=== PATIENT | female | born 1990 | race Caucasian/White ===

== ENCOUNTER 2023-11-12 09:11 | Outpatient (CLI) | payer OTHER, SELFPAY ==
--- NOTE | 2023-11-12 09:15 | US_ITS ---
Patient: ARON GAMEZ Facility:?[facility] Patient ID:?[id number] Site Patient ID:?[id number]. Site :?[id number] Study:?US-OB Pelvis OB <14 WEEKS TA-11/12/2023 9:44:11 AM Ordering Physician:Katheryn Alberto Final Report: INDICATION: First trimester scan, establish dates. COMPARISON: None. TECHNIQUE: Real-time dhaliwal-scale imaging of the pelvis was performed. FINDINGS: Sonographic imaging demonstrates a single living intrauterine gestation. The embryo demonstrates a regular cardiac rate measuring 180 beats per minute. The embryo`s crown-rump length measurement of 3.2 cm corresponds to a gestational age of 10 weeks 1 day with a sonographic due date of 06/08/2024. There is a normal-appearing yolk sac. There are no gross abnormalities noted within the embryo at this early state of development. The gestational sac has a normal appearance. There is a 1.4 x 1.1 x 1.5 cm left-sided perigestational hemorrhage. The amount of fluid within the sac appears appropriate for gestational age. The cervix is closed. The myometrium appears normal. The ovaries are of normal size. Corpus luteal cyst left ovary. There are no suspicious fluid collections noted in the cul-de-sac. IMPRESSION: Single living intrauterine with sonographic gestational age 10 weeks 1 day and sonographic due date of 06/08/2024. Small left-sided subchorionic hemorrhage measuring 14 x 11 x 15 millimeters. Dictated by Fernando Cadet MD @ 11/12/2023 11:52:51 AM Signed by:?Fernando Cadet MD @11/12/2023 11:52:51 AM (Electronic Signature)
== END 2023-11-12 09:12 | disposition home or self-care (01) ==
PROVIDERS: Visit Provider Advanced Practice Midwife
DX: Z34.91 Encounter for supervision of normal pregnancy, unspecified, first trimester (principal); O20.9 Hemorrhage in early pregnancy, unspecified; Z3A.10 10 weeks gestation of pregnancy
CPT/HCPCS: 76801; 82565; 82570; 84156; 84450; 84460; 84520; 86592; 86703; 86704; 86706; 86762; 86787; 86803; 86850; 86900; 86901; 87086; 87186; 87340

== ENCOUNTER 2024-01-28 08:07 | Outpatient (CLI) | payer OTHER, SELFPAY ==
--- NOTE | 2024-01-28 08:15 | CRLHL7_ITS ---
For Patients: As a result of the Century Cures Act, medical imaging exams and procedure reports are released immediately into your electronic medical record. You may view this report before your referring provider. If you have questions, please contact your health care provider. INDICATION: Evaluate anatomy. COMPARISON: 11/12/2023 TECHNIQUE: Real time dhaliwal scale imaging of the fetus was performed as well as color Doppler analysis of the umbilical vessels. FINDINGS: Sonographic imaging demonstrates a single living intrauterine gestation. Fetus demonstrates a regular cardiac rate of 138 beats per minute. Fetus has a breech position. The placenta lies anteriorly without evidence of placenta previa. Edge of the placenta located 6.0 cm from the internal cervical os. Amniotic fluid volume appears normal. Single deepest vertical pocket: 4.9 cm. The cervix is closed and measures 4.1 cm in length. The composite ultrasound gestational age is calculated at 21 weeks 2 days with an estimated sonographic due date of 06/07/2024. The estimated weight is 409 grams which lies at the 50th %. The following biometric measurements were obtained: Biparietal diameter: 4.8 cm/20 weeks 4 day 28th% Head circumference: 18.6 cm/21 weeks 0 days 32nd% Abdominal circumference: 16.6 cm/21 weeks 5 days 60th% Femur length: 3.5 cm/20 weeks 6 days 31st% The HC/AC ratio measures: 1.12 range (1.06-1.24) On anatomic survey, there is a normal appearance of the cerebral ventricles, cavum septi pellucidi, cisterna magna and cerebellum. The nose, lips, and facial profile appear normal. The cervical, thoracic and lumbar spine are well visualized and appear normal. There is a normal four-chamber heart view and the left and right ventricular outflow tracts appear normal. The diaphragm and stomach appear normal. The kidneys and bladder also appear normal. There is a normal three-vessel cord and cord insertion site. The four extremities appear normal. IMPRESSION: Normal OB ultrasound exam with concordance of clinical and sonographic dating. No intrinsic abnormalities noted on anatomic survey. Dictated by Fernando Cadet MD @ 01/29/2024 5:19:00 AM (Electronically Signed)
== END 2024-01-28 08:08 | disposition home or self-care (01) ==
LOC: US 08:08
PROVIDERS: Visit Provider Advanced Practice Midwife
DX: Z34.92 Encounter for supervision of normal pregnancy, unspecified, second trimester (principal); Z3A.21 21 weeks gestation of pregnancy
CPT/HCPCS: 76805

== ENCOUNTER 2024-03-18 09:35 | Outpatient (CLI) | payer MEDICAID, SELFPAY | END 2024-03-18 09:36 | disposition home or self-care (01) | LOC: NFLDREF 03-22 22:07 | PROVIDERS: Visit Provider Midwife | DX: O10.912 Unspecified pre-existing hypertension complicating pregnancy, second trimester (principal); Z3A.21 21 weeks gestation of pregnancy; Z86.19 Personal history of other infectious and parasitic diseases; Z36.89 Encounter for other specified antenatal screening | CPT/HCPCS: 86592 ==

== ENCOUNTER 2024-04-11 10:37 | Outpatient (CLI) | payer MEDICAID, SELFPAY ==
--- NOTE | 2024-04-11 10:45 | CRLHL7_ITS ---
For Patients: As a result of the Century Cures Act, medical imaging exams and procedure reports are released immediately into your electronic medical record. You may view this report before your referring provider. If you have questions, please contact your health care provider. INDICATION: CHTN TECHNIQUE: Real time dhaliwal scale imaging of the fetus was performed. COMPARISON: 01/28/2024 FINDINGS: Sonographic imaging demonstrates a single living intrauterine gestation. Fetus demonstrates a regular cardiac rate of 137 beats per minute. Fetus has a vertex position. The placenta lies anteriorly. Amniotic fluid volume appears normal and there is a single deepest pocket of 3.2 cm. The estimated weight is 1968gm which lies at the 62nd %. On the prior OB ultrasound dated 01/28/2024 the estimated weight was at the 50th percentile. BPD 28th percentile. HC is 68th percentile. AC is 63rd percentile. FL is 63rd percentile. The fetus was active and demonstrated normal breathing movements. There was normal flexion and extension of the trunk and extremities. IMPRESSION: Normal biophysical profile score 8/8. Sonographic gestational age 32 weeks 3 days and sonographic due date of 06/03/2024. Sonographic age is 5 days ahead of the clinical age. Estimated weight 62nd percentile. Abdominal circumference 63rd percentile. Dictated by Fernando Cadet MD @ 04/11/2024 4:52:14 PM (Electronically Signed)
== END 2024-04-11 10:38 | disposition home or self-care (01) ==
LOC: US 10:38
PROVIDERS: Visit Provider Midwife
DX: O10.913 Unspecified pre-existing hypertension complicating pregnancy, third trimester (principal); Z3A.32 32 weeks gestation of pregnancy
CPT/HCPCS: 76816; 76819

== ENCOUNTER 2024-05-09 09:11 | Outpatient (CLI) | payer MEDICAID, SELFPAY ==
--- NOTE | 2024-05-09 09:15 | CRLHL7_ITS ---
For Patients: As a result of the Century Cures Act, medical imaging exams and procedure reports are released immediately into your electronic medical record. You may view this report before your referring provider. If you have questions, please contact your health care provider. INDICATION: CHTN TECHNIQUE: Real time dhaliwal scale imaging of the fetus was performed. COMPARISON: 04/11/2024 FINDINGS: Sonographic imaging demonstrates a single living intrauterine gestation. Fetus demonstrates a regular cardiac rate of 163 beats per minute. Fetus has a vertex position. The placenta lies anteriorly. Amniotic fluid volume appears normal and there is a single deepest pocket of 3.9 cm. The estimated weight is 3108gm which lies at the 85th %. On the prior OB ultrasound dated 04/11/2024 the estimated weight was at the 62nd percentile. BPD 61st percentile. HC 60th percentile. AC 96th percentile. FL 56th percentile. The fetus was active and demonstrated normal breathing movements. There was normal flexion and extension of the trunk and extremities. IMPRESSION: Normal biophysical profile score 8/8. Sonographic gestational age 36 weeks 6 days and sonographic due date 05/31/2024. Sonographic age 8 days ahead of the clinical age. Estimated weight 85th percentile. Abdominal circumference 96th percentile. Dictated by Fernando Cadet MD @ 05/09/2024 10:58:29 AM (Electronically Signed)
== END 2024-05-09 09:12 | disposition home or self-care (01) ==
LOC: US 09:11
PROVIDERS: Visit Provider Midwife
DX: O10.913 Unspecified pre-existing hypertension complicating pregnancy, third trimester (principal); Z3A.36 36 weeks gestation of pregnancy
CPT/HCPCS: 76816; 76819

== ENCOUNTER 2024-05-09 10:49 | Outpatient (CLI) | payer MEDICAID, SELFPAY | END 2024-05-09 10:50 | disposition home or self-care (01) | LOC: NFLDREF 05-13 04:50 | PROVIDERS: PCP Advanced Practice Midwife; Visit Provider Advanced Practice Midwife | DX: O10.913 Unspecified pre-existing hypertension complicating pregnancy, third trimester (principal); Z86.19 Personal history of other infectious and parasitic diseases; Z3A.35 35 weeks gestation of pregnancy | CPT/HCPCS: 76816; 76819; 87081; 87653 ==

== ENCOUNTER 2024-05-20 10:01 | Outpatient (CLI) | payer MEDICAID, SELFPAY | END 2024-05-20 10:02 | disposition home or self-care (01) | PROVIDERS: PCP Midwife; Visit Provider Midwife | DX: O10.913 Unspecified pre-existing hypertension complicating pregnancy, third trimester (principal); Z3A.37 37 weeks gestation of pregnancy | CPT/HCPCS: 82565; 82570; 84156; 84450; 84460; 84520 ==

== ENCOUNTER 2024-05-26 10:11 | Outpatient (CLI) | payer MEDICAID, SELFPAY | END 2024-05-26 10:12 | disposition home or self-care (01) | PROVIDERS: Visit Provider Midwife | DX: Z34.93 Encounter for supervision of normal pregnancy, unspecified, third trimester (principal); Z3A.38 38 weeks gestation of pregnancy | CPT/HCPCS: 82565; 82570; 84156; 84450; 84460; 84520 ==

== ENCOUNTER 2024-06-01 12:56 | Outpatient (CLI) | payer MEDICAID, SELFPAY ==
--- NOTE | 2024-06-01 13:00 | CRLHL7_ITS ---
For Patients: As a result of the Century Cures Act, medical imaging exams and procedure reports are released immediately into your electronic medical record. You may view this report before your referring provider. If you have questions, please contact your health care provider. INDICATION: Hypertension TECHNIQUE: Limited transabdominal two-dimensional dhaliwal-scale ultrasound examination. COMPARISON: 04/11/2024 FINDINGS: There is a living fetus in cephalic lie with gestational age of 35 weeks 5 days by LMP and 36 weeks 6 days by today`s measurements. EDC based on LMP is 06/08/2024. BPD: 8.9 cm, 35 weeks 6 days Head circumference: 32.9 cm, 37 weeks 3 days Abdominal circumference: 33.8 cm, 37 weeks 5 days Femur length: 7.1 cm, 36 weeks 1 day HC/AC: 0.97 The weight is estimated at 3108 grams, the 85th percentile. The biophysical profile score is 8/8 with component scores of 2 for breathing movements, 2 for gross body movements, 2 for tone and 2 for amniotic fluid/SDP. The heart rate is measured at 163 beats per minute and the rhythm appears regular. The amniotic fluid volume is within normal limits with single deepest pocket of 3.9 cm. The placenta is anterior and superior to the cervical os. There is no evidence of previa. IMPRESSION: 1. Living fetus in cephalic lie with gestational age of 35 weeks 5 days by LMP and 36 weeks 6 days by today`s measurements. EDC based on LMP is 06/08/2024. 2. weight estimated at 3108 grams, the 85th percentile. 3. Biophysical profile score is 8/8. Dictated by Alek Cardozo MD @ 06/02/2024 9:21:51 AM (Electronically Signed)
== END 2024-06-01 12:57 | disposition home or self-care (01) ==
LOC: US 12:58
PROVIDERS: Visit Provider Midwife
DX: O13.3 Gestational [pregnancy-induced] hypertension without significant proteinuria, third trimester (principal); Z3A.35 35 weeks gestation of pregnancy
CPT/HCPCS: 76816; 76819

== ENCOUNTER 2024-06-01 13:34 | Outpatient (CLI) | payer MEDICAID, SELFPAY | END 2024-06-01 13:35 | disposition home or self-care (01) | PROVIDERS: PCP Advanced Practice Midwife; Visit Provider Advanced Practice Midwife | DX: O10.913 Unspecified pre-existing hypertension complicating pregnancy, third trimester (principal); Z3A.39 39 weeks gestation of pregnancy | CPT/HCPCS: 76816; 76819; 82565; 82570; 84156; 84450; 84460; 84520; 84550 ==

== ENCOUNTER 2024-06-08 12:08 | Outpatient (CLI) | payer MEDICAID, SELFPAY | END 2024-06-08 12:09 | disposition home or self-care (01) | LOC: NFLDREF 06-09 05:15 | PROVIDERS: Visit Provider Advanced Practice Midwife | DX: O10.913 Unspecified pre-existing hypertension complicating pregnancy, third trimester (principal); Z3A.40 40 weeks gestation of pregnancy | CPT/HCPCS: 82565; 82570; 84156; 84450; 84460; 84520 ==

== ENCOUNTER 2024-06-08 12:12 | Outpatient (CLI) | payer MEDICAID, SELFPAY ==
--- NOTE | 2024-06-08 12:15 | CRLHL7_ITS ---
For Patients: As a result of the Century Cures Act, medical imaging exams and procedure reports are released immediately into your electronic medical record. You may view this report before your referring provider. If you have questions, please contact your health care provider. INDICATION: CHTN COMPARISON: 05/09/2024 TECHNIQUE: Real time dhaliwal scale imaging of the fetus was performed. Without non-stress testing. FINDINGS: Sonographic imaging demonstrates a single living intrauterine gestation. Fetus demonstrates a regular cardiac rate of 147 beats per minute. Fetus has a vertex position. The amniotic fluid volume appears normal and there is a single deepest pocket measurement of 3.5 cm. The fetus was active and demonstrated normal breathing movements. There was normal flexion and extension of the trunk and extremities. IMPRESSION: Normal biophysical profile score of 8 out of 8. Dictated by Fernando Cadet MD @ 06/08/2024 1:04:33 PM (Electronically Signed)
== END 2024-06-08 12:13 | disposition home or self-care (01) ==
LOC: US 12:12
PROVIDERS: Visit Provider Advanced Practice Midwife
DX: O10.919 Unspecified pre-existing hypertension complicating pregnancy, unspecified trimester (principal)
CPT/HCPCS: 76819; 82565; 82570; 84156; 84450; 84460; 84520

== ENCOUNTER 2024-06-14 10:17 | Outpatient (CLI) | payer MEDICAID, SELFPAY | END 2024-06-14 10:18 | disposition home or self-care (01) | PROVIDERS: Visit Provider Advanced Practice Midwife | DX: Z34.93 Encounter for supervision of normal pregnancy, unspecified, third trimester (principal); Z3A.40 40 weeks gestation of pregnancy | CPT/HCPCS: 82565; 82570; 84156; 84450; 84460; 84520 ==

== ENCOUNTER 2024-06-16 02:02 | Inpatient (IN) | payer MEDICAID, SELFPAY ==
[2024-06-16] VITALS (26 sets, daily range): BP systolic 114–172; BP diastolic 70–93; PULSE 78–115; RESP 14–18; TEMP 36.6–37.1; O2SAT 93–98; BMI 37.3
--- NOTE | 2024-06-16 01:55 | W.PM.LDBA ---
Subjective History of Present Illness Date Seen: 06/16/24 Narrative: Patient is being admitted to Labor and Delivery for active labor. She is a 34 year old at 41w1d gestation. Her full history and physical was dictated by me on 05/20/2024. Please see this for details. She has had good movement, no LOF, and no vaginal bleeding. She has felt icky since night, but did not start nayana until 11pm on . No [place], vision changes, RUQ pain. No elevated BPs at home per . Specific Issues/Plans : EMIR. Son: Natan. Baby: [place]! H&P completed by Nancy 05/20/2024 REPEAT GBS NEXT VISIT-declined # Chronic HTN, not on meds-CNM care ok as of 02/02/2024. OB consult: 03/03 with MD DAVID Was on meds last near the end, aware this would risk her out of CNM care Baseline Pre-e labs: ordered WNL; Weekly pre-e labs were started at 37w, continue weekly Growth US every 4 weeks beginning at 32 weeks Weekly BPP or NST starting at 32 weeks: testing form completed 03/18/2024 Delivery recommended 38 0/7-39 6/7- would like to wait for IOL towards end range: Declines IOL as of 06/01 Started on Labetalol 200mg BID on 05/20/24-declines IOL. Shared OB/CNM care OK'd w/ Yonas if dose adjustments are not needed. Declines post-dates IOL 06/14 # History of genital HSV Recommends suppression starting at 36 weeks Rx sent pt aware to start, confirmed taking 06/01 # Close child spacing, <12 months at NOB # History of PROM >45 hours # Hx of anxiety/depression, stable # Asymptomatic UTI at NOB # Rubella non-immune recommend pp vaccine Ultrasound: 1st trimester: 11/12/23-Single living intrauterine with sonographic gestational age 10 weeks 1 day and sonographic due date of 06/08/2024. Small left-sided subchorionic hemorrhage measuring 14 x 11 x 15 millimeters. Anatomy scan: 01/28/2024-?Normal OB ultrasound exam with concordance of clinical and sonographic dating. No intrinsic abnormalities noted on anatomic survey.? Others: ? 04/11: BPP 8/8, EFW 62%ile, vertex 05/09: BPP 8/8, EFW 84.6%, vertex 06/01: BPP 8/8, EFW 61%ile, vertex COVID: initial series, declined booster Flu: TDAP: Patient declines. OB - Problem Based A/P Additional Plan (1) : Status: Acute (2) Chronic hypertension affecting : Status: Acute (3) History of herpes genitalis: Status: Acute Plan 34 at 41w1d gestation?? complicated by:??chronic HTN on labetalol Labor type: Spontaneous, Active labor?? Category 1 FHR pattern.??? Labor complicated by: Mild BP elevations, chronic HTN, postdates?? GBS Unknown? PLAN:?? 1. Routine intrapartum cares as ordered. Continue with expectant management?? 2. Monitoring per policy, continuous 3. Planning unmedicated . Candidate for analgesia of choice.??? 4. Patient encouraged to reposition and ambulate to promote physiologic labor and .?? 5. GBS prophylaxis not initiated per AAP recommendations.? 6. Anticipate ? OB Result Labs Blood Type: AB (+) positive Rubella: immune RPR/VDLR: nonreactive GBS Status: unknown (, but negative 05/09/24, Pt declined repeat testing in clinic) HBsAG: negative OB Exam Physical Exam Vital signs: Pulse BP 97 139/93 H 06/16/24 01:42 06/16/24 01:42 Narrative: Vitals Reviewed Constitutional:? Alert and oriented x3 HEENT:? Normocephalic, atraumatic Neck:? Supple Lungs:? Clear to auscultation bilaterally Heart:? Regular rate and rhythm, no murmur, rub or gallop Abdomen:? Soft, nontender, and gravid. Vertex by Kelton's, confirmed with recent BPP. Extremities:? No edema or erythema Cervix:deferred per patient request. NST: 145 bpm/moderate variability/accelerations absent/no confirmed decelerations/q 3 min contractions palpating strong. Difficulty tracing due to maternal positions and habitus, repositioning
[2024-06-16 02:51] LABS: Aspartate Amino Transferase* 21 U/L (12-35); Creatinine* 0.5 mg/dL (0.5-1.5); Estimated Glomerular Filt Rate 128 ml/min
[2024-06-16 02:52] LABS: Alanine Aminotransferase* 17 U/L (4-35); Blood Urea Nitrogen* 8 mg/dL (5-24)
[2024-06-16 02:55] LABS: Hematocrit 37.5 % (33.0-51.0); Hemoglobin* 12.8 gm/dL (12.0-16.0); Mean Corpuscular HGB Conc 34 gm/dL (32-36); Mean Corpuscular Hemoglobin 30 pg (26-34); Mean Corpuscular Volume 87 fL (80-100); Platelet Count* 262 K/uL (140-440); Red Blood Count 4.29 m/uL (4.00-5.20); White Blood Count* 12.86 K/uL (4.50-11.00)
[2024-06-16 02:56] LABS: Slide Review Reflex No
[2024-06-16] MEDS: OXYTOCIN 10 UNIT/ML INJ IM (03:00)
[2024-06-16] MEDS: miSOPROStoL 800 MCG/4 TABLET PR (03:06)
[2024-06-16] MEDS: CARBOPROST TROMETHAMINE 250 MCG/ML INJ IM (03:30)
[2024-06-16] MEDS: OXYTOCIN 30 unit/500 ML in NS 30 UNIT/500 ML BAG 500 UNIT IVPB (03:35)
[2024-06-16] MEDS: LACTATED RINGERS 1000 ML 1,000 ML 300 ML IV (03:39)
[2024-06-16] MEDS: LOPERAMIDE HCL 2 MG CAPSULE 4 MG PO (03:40)
[2024-06-16] MEDS: IBUPROFEN 600 MG TABLET PO ×3 (04:00→22:56)
--- NOTE | 2024-06-16 04:09 | W.PM.OBVAGDE ---
OB Procedure Vag Delivery Mother Details Mother Details: The patient is a 34 year-old, 2, Para 2, admitted on 06/16/24 at 41 1/7 Days gestation. Admission Date: 06/16/24 Additional Details Amniotic Membrane Status: SROM Amniotic Membrane Rupture Date: 06/16/24 Amniotic Membrane Rupture Time: 02:41 Amniotic Membrane Fluid Description: Clear Analgesia/Anesthesia Type: None Waterbirth: No Pitcoin: No Intrapartal Events: None Labor Onset: 23:00 Complete: 02:30 (Assumed with spontaneous intermittent pushing) Pushin:30 Heart: heart tones during second stage were cat 2 assumed with tracing difficult due to maternal habitus and position. Constant attempts to adjust monitor with audible FHR 120s-140s intermittent, but there may have been decelerations when not audible. Delivery imminent, so patient encouraged to have her baby. Delivery Details Delivery Date: 06/16/24 Delivery Time: 02:44 Route of delivery: Gender: Female Viability: Alive; Heart Rate Present Position at Delivery: OA Delivery Details: Patient was admitted for active labor and progressed normally. SROM noted at 0241 with clear fluid. Patient was assumed complete at 0230 with intermittent spontaneous pushing. of a viable female at 0244 in OA. Vertex delivered OA. One nuchal cord that baby delivered through without complication. Body delivered immediately, spontaneously after the head and without incident. AJ didn't actually catch, since she came so fast, but he brought her to her mother's abdomen. passed to mothers abdomen with a vigorous cry. Cord was clamped and cut at > 5 minutes. APGARS were 9 at one minute and 9 at five minutes respectively. Intact placenta with a 3 vessel cord delivered spontaneously with mild traction and maternal efforts when felt off right and rising in the uterus. Uterine atony prompted IM Pitocin with consent. Initial firming noted with manual external pressure to fundus. this is when elevated BP was detected in the severe range and I requested they recheck again in 5 min. 200cc EBL on pad with amniotic fluid and changed out. After a few minutes, oozing of lochia noted so sweep of posterior vagina and cervix completed and resulted in a large amount of clots evacuated. Misoprostal given at 0306. Manual pressure to uterus until fundus felt firm. No lacerations identified. That pad changed yielded QBL of 645 cc. Another IV site was called for with consent since AJ had accidentally pulled her other one out at time of . Atony then detected again. Encouraged them to get baby to breast and hemabate requested. Another vaginal sweep was completed with moderate clots. Hemabate given and fundus again palpated firm after a few minutes. IV was not yet established, but plan made for IV bolus and pitocin IV. Another pad changed and QBL of 160cc. Fundus has since remained firm. Cristine did not get light-headed, dizzy or nauseated at any point. Repeat BPs have been only mildly elevated or normotensive. Mother and baby stable; mother plans to breastfeed. Infant weight pending.? 1 Minute Interval Total Score: 9 5 Minute Interval Total Score: 9 Additional Details Shoulder Dystocia: No Placenta Delivery Time: 02:57 Placental Delivery Description: Spontaneous Procedure Done: Global Blood Loss: 1,005 Laceration: None Blood Loss Measurement Type: EBL Bakri Used: No Sponge/Need Count Correct: Yes Cord Vessel Description: 3 Vessels, Nuchal Cord (x1 delivered through without complication) and Delivered through Event Summary Status: Mother and were stable after delivery.
[2024-06-16] MEDS: LABETALOL HCL 100 MG TABLET 200 MG PO ×2 (08:53→22:56)
[2024-06-16] MEDS: ACETAMINOPHEN 500 MG TABLET 1000 MG PO (08:55)
[2024-06-17 03:30] VITALS: BP 123/79; PULSE 77; RESP 12; TEMP 36.4; O2SAT 96
[2024-06-17 07:14] LABS: Hemoglobin* 9.4 gm/dL (12.0-16.0)
[2024-06-17 08:30] VITALS: BP 146/84; PULSE 99; RESP 16; TEMP 36.6; O2SAT 96
--- NOTE | 2024-06-17 08:48 | P.DS_ITS ---
DS: Providers Provider Date Seen: 06/17/24 Date of admission: 06/16/24 02:02 Primary care physician: Not a Local Provider Admitting Clinician: Krysta Brower CNM Attending Physician on discharge: Dolly Mandel CNM DS: Diagnosis Discharge Diagnosis (1) care and examination immediately after delivery: Status: Acute (2) Chronic hypertension: Status: Acute (3) Lactating mother: Status: Acute Exam Narrative: Exam Narrative: GENERAL APPEARANCE:? normal affect, alert, no distress MOOD:? appropriate CHEST:? clear to auscultation HEART:? regular rate and rhythm ABDOMEN:? soft, non-tender the uterine fundus is at Umbilicus, Midline and is appropriate for the stage of recovery. PERINEUM:? mild edema of the perineum. EXTREMITIES:? normal and no edema Const: Vital Signs, click to edit/add: Vital Signs - 24 hr 06/16/24 09:00 06/16/24 12:53 06/16/24 17:31 Temperature 97.9 F 98.2 F 98.2 F Pulse Rate [Pulse Oximeter] 97 80 93 Respiratory Rate 14 14 16 Blood Pressure [Le ft Arm] 116/72 114/73 123/70 Pulse Oximetry 97 96 96 Oxygen Delivery Me thod Room Air Room Air Room Air 06/16/24 21:05 06/16/24 22:50 06/17/24 03:30 Temperature 98.4 F 97.5 F L Pulse Rate [Pulse Oximeter] 93 77 Respiratory Rate 16 12 Blood Pressure [Le ft Arm] 133/81 125/71 123/79 Pulse Oximetry 96 Oxygen Delivery Me thod Room Air Documenting provider has reviewed patient's vital signs: yes OB - DS: Summary Hospital Course Hospital Course: Cristine is a 34 y.o. G 2 P 2 who was admitted to L & [facility] for spontaneous onset of labor. ?She had a NVD that was complicated by PPH of 1005. The patient feels well. ?The pain is well controlled with current medications. ?She has no new complaints. ?She is breast feeding and reports things are going well. the patient has done well.? Vitals have been stable.? She has remained afebrile.? Has a good appetite, is tolerating a general diet. ?She is voiding without difficulty.? She is passing gas and has not had a bowel movement.? She is ambulating and denies any dizziness.? Has small amount of rubra lochia. She is planning NFP for prevention. Problems: Anemia plan: Discharge home with baby. Follow up in 2 weeks and 6 weeks. , may see if needed Hgb 9.4. Iron supplement ordered orally every other day CHTN Labs WNL Continue Labetalol BID, decreased to daily after 1 week Call for signs/symptoms of preeclampsia Peripartum Data Infant delivery method: Vaginal Laceration description: None complications: none [place] Gender: Female Infant Discharge Plan: Home Status at Discharge Functional status at discharge: independent ambulation Overall status at discharge: patient is progressing back to baseline Time Spent with Patient Time attestation: Total time spent providing and/or coordinating discharge services: Time spent: Less than 30 minutes Discharge Plan Discharge Disposition: Home, Self-Care Date of Admission: 06/16/24 02:02 Attending Provider on Discharge: Dolly Mandel Primary Care Provider: Provider,Not a Local Condition: Stable Anticipated Discharge Date/Time: 06/17/24 12:00 Discharge Medications: New acetaminophen 500 mg Tablet 1,000 mg PO Q6H PRNQty: 0 0RF ferrous sulfate 325 mg (65 mg iron) Tablet 325 mg PO Q OTHER DAY Qty: 60 0RF docusate sodium 100 mg Capsule 100 mg PO DAILY Qty: 90 0RF ibuprofen 600 mg Tablet 600 mg PO Q6H PRNQty: 60 0RF labetalol 100 mg Tablet 200 mg PO BID 14 Days Qty: 56 0RF Continued One Daily 28-800-440 mg-mcg-mg combo pack PO cholecalciferol (vitamin D3) 50 mcg (2,000 unit) capsule 50 mcg PO QDAY labetalol 200 mg tablet 200 mg PO BID Qty: 60 0RF valacyclovir 500 mg tablet 500 mg PO BID Qty: 60 1RF magnesium glycinate 100 mg tablet 200 mg PO QDAY Discontinued aspirin 81 mg tablet,chewable 81 mg PO QDAY Discharge Orders: Discharge Order (Routine); Ordered 06/17/24 Ordered By: Dolly Mandel Patient Education: OB Over the Counter Medication Information, OB Vaginal/Breast Feeding Additional Instructions: Discharge instructions were reviewed with the patient including signs and symptoms of infection and home going medications Nothing vaginally for 6 weeks: no tampons or intercourse Off Work or School for 6 weeks Continue to Monitor BP at home BID Continue Labetalol BID, decrease to daily at 7 days pp and continue until 2 week pp visit. * Call with BP greater than or equal to 160/110 * Severe headache that doesn't improve after taking medications * Changes in vision, including temporary loss of vision, blurred vision, and/or light sensitivity * Upper abdominal pain (usually under ribs on the right side) 2-week visit: discuss feeding concerns, review control options and screen for anxiety/depression. 6-week visit for an annual exam. consultation services are available to all mothers and babies for the first year after delivery.? To make an appointment, please call [phone]. Activity Level: Activity as Tolerated Discharge Diet: Regular Follow Up Appointments: [facility] [Provider Group] Forms: [employer] Info Instructions
[2024-06-17] MEDS: LABETALOL HCL 100 MG TABLET 200 MG PO (09:27)
[2024-06-17] MEDS: FERROUS SULFATE 325 MG TABLET PO (09:29)
[2024-06-17 09:50] VITALS: BP 126/84
[2024-06-18 03:46] LABS: Rapid Plasma Reagin (RPR) Non Reactive (Non Reactive)
== END 2024-06-17 10:25 | disposition home or self-care (01) | DRG 560 ==
LOC: OB OUT 02:02 → OB 02:02
PROVIDERS: Admitting Provider Midwife; Visit Provider Midwife
DX: O48.0 Post-term pregnancy (principal); O10.92 Unspecified pre-existing hypertension complicating childbirth; O72.1 Other immediate postpartum hemorrhage; O98.32 Other infections with a predominantly sexual mode of transmission complicating childbirth; A60.00 Herpesviral infection of urogenital system, unspecified; Z3A.41 41 weeks gestation of pregnancy; Z37.0 Single live birth
CPT/HCPCS: 36415; 82565; 82570; 84156; 84450; 84460; 84520; 85018; 85027; 86592; 86850; 86900; 86901; 88307; A9270; J2590; J7120

== ENCOUNTER 2024-08-02 11:40 | Outpatient (CLI) | payer BC, SELFPAY | END 2024-08-02 11:41 | disposition home or self-care (01) | LOC: NFLDREF 08-06 01:33 | PROVIDERS: Visit Provider Midwife | DX: Z39.2 Encounter for routine postpartum follow-up (principal) | CPT/HCPCS: 87491; 87591 ==